=== PATIENT | female | born 1995 | race African-American/Black ===

== ENCOUNTER 2021-09-01 13:21 | Emergency (ER) | payer MEDICAID, OTHER ==
[~2021-09-01] VITALS: Ht 162.6 cm; Wt 73.0 kg
[2021-09-01 13:44] VITALS: BP 132/85
[2021-09-01] MEDS ORDERED: KETOROLAC 60MG/2ML VIAL IM ONE (16:00)
[2021-09-01] MEDS ORDERED: KETOROLAC 60MG/2ML VIAL IM NR (17:49)
[2021-09-01] MEDS ORDERED: IBUP-2029 MT (18:48)
== END 2021-09-01 20:23 | disposition home or self-care (01) ==
LOC: ER 13:32
DX: M79.661 Pain in right lower leg (principal); M79.18 Myalgia, other site; Z97.5 Presence of (intrauterine) contraceptive device
CPT/HCPCS: 93971; 96372; 99284; J1885